=== PATIENT | female | born 1965 ===

== ENCOUNTER 2025-07-27 09:38 | Outpatient (AMB) | payer MEDICARE, MEDICAID, SELFPAY ==
--- NOTE | 2025-07-27 09:54 | A.PHYSOV_ITS ---
Vital Signs 07/27/25 09:58 Height 5 ft 5 in Weight 245 lb BMI 40.8 Intake Visit Reasons: back pain Intake Note: Patient is a 60 year old female here today for back pain. Service Center Supervisor Required: No Service Center Supervisor Services: Service Center Supervisor Offered & Declined Allergies cat dander (cats) Allergy (Unknown, Verified 07/27/25 09:56) Unknown dog dander (dogs) Allergy (Unknown, Verified 07/27/25 09:56) Unknown grass pollen Allergy (Unknown, Verified 07/27/25 09:56) Unknown mold Allergy (Unknown, Verified 07/27/25 09:56) Unknown Rabbit Allergy (Unknown, Verified 07/27/25 09:56) Unknown HPI Comments Details: History of Present Illness The patient is a 60 year old female presenting for evaluation and management of chronic low back pain. She reports her pain level is currently an 8 out of 10 and is located in the low back, radiating into the hip but not down the legs. The patient has undergone two previous back injections which did not provide significant relief. She has previously taken Percocet, which she found helpful. She currently takes Aleve and Gabapentin, noting the latter is not helping. She reports additional pain in her shoulders and knees. She has a history of plantar fasciitis, which has been treated by a sustainable landscape architect. Pain Description - Location: Pain is in the low back and radiates into the hip. - Radiation: Pain does not radiate into the legs. - Severity: The patient rates her current pain as an 8 out of 10. - Exacerbating Factors: Pain is worsened by leaning backward (extension) and palpation of the lower back. - Relieving Factors: Bending forward does not change the pain. Procedure: Right SI joint injection 06/08/2023 50% reduction of her pain L5-S1 SHAHRIAR 01/24/2025 no relief Bilateral L3 TFESI 04/28/2024 no relief PFSH Surgical History H/O: knee surgery H/O hernia repair History of back surgery Social History Alcohol intake: current Alcohol intake frequency: does not drink Patient Tobacco Use Status: Never used Tobacco Review of Systems Narrative Review of Systems - General: Reports feeling cold all over. - Musculoskeletal: Reports severe low back pain radiating to the hip. - Musculoskeletal: Reports pain in the shoulders and knees. - Musculoskeletal: Reports a history of plantar fasciitis. - Neurological: Denies pain radiating into the legs. Physical Exam Exam Exam: Physical Exam Lumbar Spine: Examination of the lumbar spine, there is no visible swelling or deformity. She is tender to lower lumbar facets. She is otherwise nontender. Full range of motion of the lumbar spine. She does have an increase in pain with facet loading. Special Tests: Lhermittes sign was negative Heel Toe walk is normal Left straight leg raise: Negative Right straight leg raise: Negative Special tests Danya test is positive bilaterally Ganslen's test is positive bilaterally SI Joint compression test positive bilaterally Sandy test negative Piriformis stretch is negative Lower Extremities: Full range of motion bilateral lower extremities. No calf pain or edema. Neuro: Sensation: Intact to lower extremities bilaterally Strength L2 (Psoas): 5/5 on the left and 5/5 on the right. L3 (Quads): 5/5 on the left and 5/5 on the right. L4 (Ant tibialis): 5/5 on the left and 5/5 on the right. L5 (EHL) 5/5 on the left and 5/5 on the right. S1 (Gastroc): 5/5 on the left and 5/5 on the right. DTR L4: (Patellar) Left 2 Right 2 S1: (Achilles) Left 2 Right 2 Babinski Downgoing No pathologic clonus. No involuntary movement. Vital Signs: BMI result Body Mass Index 40.8 Assessment & Plan Assessment & Plan (1) Bilateral sacroiliitis: Code(s): M46.1 - Sacroiliitis, not elsewhere classified Category: Medical Plan Pain Management - Affect: The patient states the pain is too much and terrible. - Analgesia: Current pain is 8/10. - Analgesia: The patient currently uses Aleve. - Analgesia: She reports that Gabapentin is not helping her pain. - Analgesia: Previous use of Percocet was helpful. - Analgesia: Previous injections in her back did not provide much relief. Plan Patient was informed and verbally consented to the use of an ambient scribe for clinic note documentation during this visit. 1. Low Back Pain She did respond to right SI joint injection in May of 2023 with 50% reduction of her pain for 3 months. The patient's low back pain is a chronic issue, and previous injections have not provided relief. Given that her pain is localized low in the bilateral sacral sulcus, sacroiliac (SI) joint pathology is suspected. A trial of bilateral SI joint injections will be ordered to target this area. A refill of Percocet will be sent to the pharmacy for pain management. Follow-up will occur 3 weeks after the procedure to evaluate the efficacy of the injections. 2. Plantar Fasciitis The patient reports a history of plantar fasciitis, which has been treated by a sustainable landscape architect. No new management was initiated for this condition during this visit. Discussion Notes I discussed with the patient that the last two injections in her back did not provide much relief. Based on her exam showing pain localized low in her back, I suggested a trial of sacroiliac (SI) joint injections. I explained the benefit of placing medication directly at the source of her pain. The patient agreed to proceed with bilateral SI joint injections. I informed her that I would order the injections, which will be performed by Dr. Ortez, and that our office would contact her for scheduling after obtaining insurance approval. I also agreed to her request to refill her Percocet for pain control. We will have a follow-up visit three weeks after the procedure to assess her response to the treatment. Patient Instructions - I am sending a prescription for your pain medication, Percocet, to your pharmacy. - We are ordering injections for your low back (both sides of the sacroiliac joint). - Our office will call you to schedule the injection appointment after we receive approval from your insurance. - You will need to schedule a follow-up appointment with me in three weeks after your injection to see if it helped. Medications: New oxycodone-acetaminophen 5-325 mg (Percocet) Partial Fill upon patient request. 1 tab PO Q4H PRN 28 tabs 0RF pain 7 days M46.1 - Sacroiliitis, not elsewhere classified Coding Level of Care Code Est Pt Level 4 (23265) Diagnoses Bilateral sacroiliitis M46.1
[2025-07-27 09:58] VITALS: BMI 40.8
== END 2025-07-27 10:25 | disposition home or self-care (01) ==
LOC: HO.HPHYS 09:39
PROVIDERS: PCP Internal Medicine; Visit Provider Physician Assistant
DX: M46.1 Sacroiliitis, not elsewhere classified (principal)
CPT/HCPCS: 99214

== ENCOUNTER → 2025-07-27 09:38 | Outpatient (BNVA) | payer MEDICARE, MEDICAID, SELFPAY | PROVIDERS: PCP Internal Medicine; Visit Provider Physician Assistant | DX: M46.1 Sacroiliitis, not elsewhere classified (principal) | CPT/HCPCS: 99212 ==